=== PATIENT | female | born 1950 | race Caucasian/White ===

== ENCOUNTER 2018-06-18 14:57 | Emergency (ER) | payer MEDICARE, OTHER ==
--- NOTE | 2018-06-18 15:19 | ED Physician Documentation ---
Upper Extremity Injury - HISTORIAN Historian: patient - HPI Stated Complaint: Finger Injury Chief Complaint: Hand Injury Onset: just prior to arrival, today Where: other (sale barn) Severity: moderate Duration: constant Context: blow Associated Symptoms: tingling Further Comments: yes - ROS CONST: no problems - PAST HX Past History: Rt handed, Lt handed, other (HTN) Allergies/Adverse Reactions: Allergies Allergy/AdvReac Type Severity Reaction Status Date / Time ampicillin Allergy Verified 06/18/18 15:23 lisinopril Allergy Verified 06/18/18 15:23 Home Medications: Ambulatory Orders Medication Instructions Recorded Doxycycline Hyclate [Vibra-Tabs] 100 mg PO BID #14 tablet 06/18/18 Omeprazole 20 mg PO DAILY 06/18/18 amLODIPine BESYLATE [Norvasc] 10 mg PO 0900 06/18/18 - SOCIAL HX Smoking History: non-smoker Alcohol Use: none Drug Use: none - FAMILY HX Family History: none - VITAL SIGNS Vital Signs: Vital Signs Temp Pulse Resp BP Pulse Ox 98.1 F 78 18 150/68 98 06/18/18 14:57 06/18/18 14:57 06/18/18 14:57 06/18/18 14:57 06/18/18 14:57 - REVIEWED ASSESSMENTS Nursing Assessment Reviewed: No Vitals Reviewed: No ED Results Lab/Radiology - Radiology Radiology Impressions: Left 2nd digit Clinical history pain Technique AP lateral oblique Findings: There is a nondisplaced fracture of the tuft the digit. Degenerative right is present at the interphalangeal joints greatest at the distal interphalangeal joint Impression nondisplaced tuft fracture. 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 - Orders Orders: ED Orders Category Date Time Status XRAY 2ND FINGER [FINGER 2 VIEWS OR MORE] [RAD] Stat Exams 06/18/18 Ordered Diph,Pertuss(Acell),Tet Vac/Pf [Adacel] Med 06/18/18 16:00 Ordered 0.5 ml IM 1T Lidocaine 2% 20ml Vial [Xylocaine] Med 06/18/18 15:43 Discontinued 400 mg .ROUTE .STK-MED ONE Upper Extremity Injury Physic - Physical Exam General Appearance: alert, mild distress Wrist: normal inspection, non-tender Elbow/Forearm: normal inspection, non-tender Neuro/Vascular/Tendon: no vascular compromise, sensory deficit (to end of finger) Skin: warm,dry, other (laceration to the distal aspect of the finger) Head/ENT: nml inspection, pharynx nml Resp/CVS: chest non-tender, breath sounds nml, heart sounds nml, no resp. distress Abdomen: non-tender Discharge Clincal Impression: Closed fracture of tuft of distal phalanx of finger Laceration of finger of left hand Qualifiers: Encounter type: initial encounter Finger: index finger Damage to nail status: with damage Foreign body presence: without foreign body Qualified Code(s): S61.311A - Laceration without foreign body of left index finger with damage to nail, initial encounter Referrals: Primary Doctor,No [Primary Care Provider] - 2 Days Additional Instructions: Keep finger dry and clean. Change dressing at least daily with antibiotic ointment. Watch for any signs of infection. Remove sutures in seven days. Take tetracycline twice a day for 7 days. Condition: Stable Disposition: 01 HOME, SELF-CARE Decision to Admit: NO Date of Decison to Admit: 06/18/18 Decision Time: 15:22
[2018-06-18] MEDS ORDERED: DIPH,PERTUSS(ACELL),TET VAC/PF 0.5 ML DISP.SYRIN IM ONE (15:26)
[2018-06-18] MEDS: DIPH,PERTUSS(ACELL),TET VAC/PF 0.5 ML DISP.SYRIN IM SCH (15:35)
[2018-06-18] MEDS: Lidocaine 2% 20ml Vial ONE (15:43)
[2018-06-18 16:22] VITALS: BP 142/58
--- NOTE | 2018-06-18 16:55 | Diagnostic Imaging Report ---
CRUZ MARTINEZ [facility] [address] [facility].[address] [address] Report Submission Date: Jun 18, 2018 3:37:43 PM CDT Patient Study Name: LILIANA MEZA Date: Jun 18, 2018 3:18:28 PM CDT Modality Type: DX Gender: F Description: UPPER EXTREMITY : 50 Institution: [facility] Physician: CRUZ MARTINEZ Left 2nd digit Clinical history pain Technique AP lateral oblique Findings: There is a nondisplaced fracture of the tuft the digit. Degenerative right is present at the interphalangeal joints greatest at the distal interphalangeal joint Impression nondisplaced tuft fracture. 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
== END 2018-06-18 16:20 | disposition home or self-care (01) ==
LOC: ED 14:57
DX: S61.311A Laceration without foreign body of left index finger with damage to nail, initial encounter (principal); S62.522A Displaced fracture of distal phalanx of left thumb, initial encounter for closed fracture; X58.XXXA Exposure to other specified factors, initial encounter; Y92.9 Unspecified place or not applicable; Y93.9 Activity, unspecified; Y99.9 Unspecified external cause status
CPT/HCPCS: 73140; 90471; 90715; 96372; 99282